=== PATIENT | female | born 1975 | race Caucasian/White ===

== ENCOUNTER 2016-05-04 14:34 | Emergency (ER) | payer BC, MEDICAID ==
[~2016-05-04] VITALS: Wt 68.4 kg
[~2016-05-04 14:34] MED LIST: ASA PO; AZIT250T94 PO; CHOL10009 PO; D-ME473S18 PO; DOCU-144 PO; FAMO-18 PO; FERR-55 PO; GABA300C16 PO; INSULIN GLARGINE; INSULIN LISPRO; LAS20 PO; LORA10CA PO; LOSA25TA5 PO; OMEP20CA16 PO; POTA20TA15 PO; PRAV80TA27 PO; PROM6.25 PO; RANI150T9 PO
[2016-05-04] MEDS ORDERED: NAPR-260 PO (15:21)
[2016-05-04] MEDS ORDERED: DICL100G37 TOP (15:22)
--- NOTE | 2016-05-04 17:00 | ERD ---
ER Documentation Chief Complaint Date/Time DATE: 05/04/16 TIME: 16:57 Chief Complaint NUMBNESS ON RIGHT ARM, ONSET 1 MONTH, NO WEAKNESS HPI Patient is a 40-year-old female who presents to the ED with 1.5 months of bilateral knee pain, wrist pain, finger joint pain that radiates up to her bilateral shoulders. She states that she has had this bone and joint pain for about a month and a half. Denies chest pain, shortness of breath or difficulty breathing. Denies numbness or tingling. Denies headache or dizziness. Denies abdominal pain, nausea, vomiting or diarrhea. She states that she has been using an [id number] cream for her symptoms. She has not gone to her primary care regarding this issue. She denies any past medical history. ROS All systems reviewed and are negative except as per history of present illness. Medications Home Meds Active Scripts Diclofenac Sodium* (Voltaren* Gel) 1% -100 Gm Gel, 2 GM TOP QID, #1 TUB Prov:RAMESH VILLEGAS PA-C 05/04/16 Naproxen* (Naprosyn*) 500 Mg Tablet, 500 MG PO BID Y for PAIN AND/OR INFLAMMATION, #30 TAB Prov:RAMESH VILLEGAS PA-C 05/04/16 Dextromethorphan Hb-Promethazine Hcl (Promethazine DM Syrup) 473 Ml Syrup, 10 ML PO Q6H Y for COUGH, #4 OZ Prov:GRACIE FINLEY 01/11/16 Azithromycin* (Zithromax*) 250 Mg Tablet, 250 MG PO .LUCIEN DIRECTED, #6 TAB TAKE 500 MG (2 TABS) THE FIRST DAY THEN 250 MG (1 TAB) DAYS 2-5 Prov:GRACIE FINLEY 01/11/16 Loratadine* (Claritin*) 10 Mg Capsule, 10 MG PO DAILY, #30 CAP Prov:AMAN MATTHEWS PA-C 10/14/15 Ranitidine Hcl* (Zantac*) 150 Mg Tablet, 150 MG PO DAILY Y for EPIGASTRIC PAIN, #30 TAB Prov:AMAN MATTHEWS PA-C 10/14/15 Promethazine w/Codeine* (Phenergan w/Codeine* Syrup) 5 Ml Syrup, 5 ML PO Q4H Y for COUGH, #4 OZ Prov:STANTON GALAN DO 01/14/15 Omeprazole* (Omeprazole*) 20 Mg Capsule.dr, 20 MG PO DAILY for 7 Days, CAP Prov:LORI MCNAMARA NP 09/07/14 Famotidine* (Pepcid*) 20 Mg Tablet, 20 MG PO BID for 4 Days, TAB Prov:LORI MCNAMARA IRON LAUNDER OPERATOR 09/07/14 Reported Medications [Lantus,Humalog Insulin] No Conflict Check 07/22/12 Cholecalciferol (Vitamin D3) 1,000 Unit Capsule, 1000 UNIT PO DAILY 07/22/12 Gabapentin* (Gabapentin*) 300 Mg Capsule, 300 MG PO TID 07/22/12 Ferrous Sulfate* (Ferrous Sulfate*) 325 Mg Tablet, 325 MG PO TID 07/22/12 Docusate Sodium* (Colace*) 100 Mg Capsule, 100 MG PO DAILY 07/22/12 Losartan Potassium* (Losartan Potassium*) 25 Mg Tablet, 25 MG PO DAILY 07/22/12 Pravastatin Sodium* (Pravastatin Sodium*) 80 Mg Tablet, 80 MG PO DAILY 07/22/12 Furosemide (Lasix) 20 Mg Tab, 20 MG PO DAILY 07/22/12 Potassium Chloride* (K-Dur*) 20 Meq Tab.prt.sr, 20 MEQ PO DAILY 07/22/12 [Asa] No Conflict Check, 81 MG PO DAILY 07/22/12 [None] No Conflict Check 07/22/12 [None] No Conflict Check 04/01/11 Allergies Allergies: Coded Allergies: No Known Allergy (Unverified , 01/11/16) PMhx/Soc Medical and Surgical Hx: pt denies Medical Hx, pt denies Surgical Hx History of Surgery: No Anesthesia Reaction: No Hx Neurological Disorder: No Hx Respiratory Disorders: No Hx Cardiac Disorders: No Hx Psychiatric Problems: No Hx Miscellaneous Medical Probl: No Hx Alcohol Use: No Hx Substance Use: No Hx Tobacco Use: No Smoking Status: Never smoker FmHx Family History: No coronary disease, No diabetes, No other Physical Exam Vitals Vital Signs Date Time Temp Pulse Resp B/P Pulse Ox O2 Delivery O2 Flow Rate FiO2 05/04/16 14:37 98.7 77 18 152/99 100 Physical Exam GENERAL: Well-developed, well-nourished female. Appears in no acute distress. HEAD: Normocephalic, atraumatic. EYES: Pupils are equally reactive bilaterally. EOMs grossly intact. No conjunctival erythema. ENT: Moist mucous membranes. No uvula deviation. No kissing tonsils. No exudates. NECK: Supple. No lymphadenopathy or thyromegaly. No meningismus. negative kernig. negative brudinski. LUNG: Clear to auscultation bilaterally. No rhonchi, wheezing, rales or coarse breath sounds. HEART: Regular rate and rhythm. No murmurs, rubs or gallops. Extremities: Equal pulses bilaterally. No peripheral clubbing, cyanosis or edema. No unilateral leg swelling.tenderness to her shoulder, elbow, wrist, fingers and knee joints. tenderness to all her finger joints. no echhymosis, swelling or induration. no warmth or erythema. radius ulnar and median nerve intact. no weakness. NEUROLOGIC: Alert and oriented. Moving all four extremities. 5/5 strength in all extremities. Normal speech. Steady gait. Cranial nerves II through XII intact SKIN: Normal color. Warm and dry. No rashes or lesions. Capillary refill < 2 seconds Procedures/MDM ER COURSE: I kept the patient and/or family informed of laboratory and diagnostic imaging results throughout the emergency room course. MEDICAL DECISION MAKING: This is a 40 year old female who presents with bilateral leg pain, knee pain and bilateral shoulder and arm pain. Vital signs were reviewed. Patient is afebrile. Patient is not hypoxic. Patient is not toxic or ill-appearing. Patient likely has arthritis versus fibromyalgia. I do not think any x-rays are warranted at this time as this is a chronic issue and I have low suspicion for dislocation fraction. Low suspicion for intracranial hemorrhage, meningitis , intracranial mass, concussion, temporal arteritis, stroke, elevated intracranial pressure, seizure. Low suspicion for dislocation, fracture, septic joint, compartment syndrome, osteomyelitis, cellulitis, avascular necrosis, neurological injury, vascular injury, tendon laceration. DISCHARGE: At this time, patient is stable for discharge and outpatient management with no new complaints during the ER course. Patient was sent home with Naprosyn and Voltaren gel. Advised patient to follow-up with her primary care and list of primary care is in the area were given to patient. Patient will be discharged home with instructions to recheck for new or worsening symptoms such as fever, nausea, weakness, LOC and to follow up with primary care in the next 1-2 days. Patient was advised to return to the ER for any new or worsening symptoms. Plan was discussed and patient and/or family understands and agrees. Home instructions were given. Departure Diagnosis: Primary Impression: Joint pain Joint pain location: unspecified Qualified Code: M25.50 - Arthralgia, unspecified joint Condition: Stable Patient Instructions: Pain Management Referrals: [facility] YOU HAVE RECEIVED A MEDICAL SCREENING EXAM AND THE RESULTS INDICATE THAT YOU DO NOT HAVE A CONDITION THAT REQUIRES URGENT TREATMENT IN THE EMERGENCY DEPARTMENT. FURTHER EVALUATION AND TREATMENT OF YOUR CONDITION CAN WAIT UNTIL YOU ARE SEEN IN YOUR DOCTORS OFFICE WITHIN THE NEXT 1-2 DAYS. IT IS YOUR RESPONSIBILITY TO MAKE AN APPOINTMENT FOR FOLOW-UP CARE. IF YOU HAVE A PRIMARY DOCTOR --you should call your primary doctor and schedule an appointment IF YOU DO NOT HAVE A PRIMARY DOCTOR YOU CAN CALL OUR PHYSICIAN REFERRAL HOTLINE AT IF YOU CAN NOT AFFORD TO SEE A PHYSICIAN YOU CAN CHOSE FROM THE FOLLOWING [facility] [address] [facility] [address] [facility] [address] [facility] [address] [facility] [address] [facility]. [facility]. [address] Additional Instructions: Llame al doctor MAANA y jaylen mana JUDY PARA DENTRO DE 1-2 LIN.Dgale a la secretaria que nosotros le instruimos hacer esta judy.Avise o llame si caicedo condicin se empeora antes de la judy. Regresa aqui si peor o no mejor. RAMESH VILLEGAS PA-C May 04, 2016 17:00
== END 2016-05-04 17:07 | disposition home or self-care (01) ==
LOC: FTE 14:34
DX: M25.561 Pain in right knee (principal); M25.562 Pain in left knee; M25.531 Pain in right wrist; M25.532 Pain in left wrist; M79.645 Pain in left finger(s); M79.644 Pain in right finger(s); Z79.82 Long term (current) use of aspirin; Z79.4 Long term (current) use of insulin
CPT/HCPCS: 99283

== ENCOUNTER 2016-06-18 18:27 | Emergency (ER) | payer MEDICAID ==
[~2016-06-18] VITALS: Ht 157.5 cm; Wt 68.5 kg
[~2016-06-18 18:27] MED LIST changes: +DICL100G37 TOP; +NAPR-260 PO
[2016-06-18 18:49] VITALS: Ht 157.5 cm; Wt 68.5 kg
[2016-06-18] MEDS ORDERED: FIORICET PO ×2 (19:04→19:05)
[2016-06-18] MEDS ORDERED: FLUT9.9S NASAL (19:04)
[2016-06-18] MEDS ORDERED: CETI10CA PO (19:04)
--- NOTE | 2016-06-18 19:17 | ERD ---
ER Documentation Chief Complaint Date/Time DATE: 06/18/16 TIME: 19:13 Chief Complaint Headache and nasal congestion (itchy nose) HPI 40-year-old female presents here in emergency department for complaints of itchiness in the nose headache for 2 weeks. Patient is complaining of runny congestion with clear nasal discharge. Patient is also complaining of itching in the nose. Patient does not have any fever or chills. Patient denies any foreign discharge from thepatient's complaining of headache, throbbing pain, 4/ 10 scale, and is better or worse with anything. ROS All systems reviewed and are negative except as per history of present illness. Medications Home Meds Active Scripts Acetamin/Butalbital/Caffeine* (Fioricet*) [id number] Tab, 1 TAB PO Q6H Y for SEVERE PAIN LEVEL 7-10, #30 TAB Prov:TOD ROWAN NP 06/18/16 Cetirizine Hcl* (Zyrtec*) 10 Mg Capsule, 10 MG PO DAILY, #30 TAB.CHEW Prov:TOD ROWAN NP 06/18/16 Fluticasone Propionate (Flonase Allergy Relief) 9.9 Ml Ceiba.susp, 1 SPRAY NASAL BID, #1 BOTTLE TO EACH NOSTRIL Prov:TOD ROWAN NP 06/18/16 Diclofenac Sodium* (Voltaren* Gel) 1% -100 Gm Gel, 2 GM TOP QID, #1 TUB Prov:RAMESH VILLEGAS PA-C 05/04/16 Naproxen* (Naprosyn*) 500 Mg Tablet, 500 MG PO BID Y for PAIN AND/OR INFLAMMATION, #30 TAB Prov:RAMESH VILLEGAS PA-C 05/04/16 Dextromethorphan Hb-Promethazine Hcl (Promethazine DM Syrup) 473 Ml Syrup, 10 ML PO Q6H Y for COUGH, #4 OZ Prov:GRACIE FINLEY 01/11/16 Azithromycin* (Zithromax*) 250 Mg Tablet, 250 MG PO .ZPACK DIRECTED, #6 TAB TAKE 500 MG (2 TABS) THE FIRST DAY THEN 250 MG (1 TAB) DAYS 2-5 Prov:GRACIE FINLEY 01/11/16 Loratadine* (Claritin*) 10 Mg Capsule, 10 MG PO DAILY, #30 CAP Prov:AMAN MATTHEWS PA-C 10/14/15 Ranitidine Hcl* (Zantac*) 150 Mg Tablet, 150 MG PO DAILY Y for EPIGASTRIC PAIN, #30 TAB Prov:AMAN MATTHEWS PA-C 10/14/15 Promethazine w/Codeine* (Phenergan w/Codeine* Syrup) 5 Ml Syrup, 5 ML PO Q4H Y for COUGH, #4 OZ Prov:STANTON GALAN DO 01/14/15 Omeprazole* (Omeprazole*) 20 Mg Capsule.dr, 20 MG PO DAILY for 7 Days, CAP Prov:LORI MCNAMARA NP 09/07/14 Famotidine* (Pepcid*) 20 Mg Tablet, 20 MG PO BID for 4 Days, TAB Prov:LORI MCNAMARA MECHANICAL DESIGN ENGINEER FACILITIES 09/07/14 Reported Medications [Lantus,Humalog Insulin] No Conflict Check 07/22/12 Cholecalciferol (Vitamin D3) 1,000 Unit Capsule, 1000 UNIT PO DAILY 07/22/12 Gabapentin* (Gabapentin*) 300 Mg Capsule, 300 MG PO TID 07/22/12 Ferrous Sulfate* (Ferrous Sulfate*) 325 Mg Tablet, 325 MG PO TID 07/22/12 Docusate Sodium* (Colace*) 100 Mg Capsule, 100 MG PO DAILY 07/22/12 Losartan Potassium* (Losartan Potassium*) 25 Mg Tablet, 25 MG PO DAILY 07/22/12 Pravastatin Sodium* (Pravastatin Sodium*) 80 Mg Tablet, 80 MG PO DAILY 07/22/12 Furosemide (Lasix) 20 Mg Tab, 20 MG PO DAILY 07/22/12 Potassium Chloride* (K-Dur*) 20 Meq Tab.prt.sr, 20 MEQ PO DAILY 07/22/12 [Asa] No Conflict Check, 81 MG PO DAILY 07/22/12 [None] No Conflict Check 07/22/12 [None] No Conflict Check 04/01/11 Allergies Allergies: Coded Allergies: No Known Allergy (Unverified , 01/11/16) PMhx/Soc Medical and Surgical Hx: pt denies Medical Hx, pt denies Surgical Hx History of Surgery: No Anesthesia Reaction: No Hx Neurological Disorder: No Hx Respiratory Disorders: No Hx Cardiac Disorders: No Hx Psychiatric Problems: No Hx Miscellaneous Medical Probl: No Hx Alcohol Use: No Hx Substance Use: No Hx Tobacco Use: No FmHx Family History: No coronary disease, No diabetes, No other Physical Exam Vitals Vital Signs Date Time Temp Pulse Resp B/P Pulse Ox O2 Delivery O2 Flow Rate FiO2 06/18/16 18:49 98.7 74 20 118/79 99 Physical Exam GENERAL: The patient is well developed and appropriate for usual state of health, in no apparent distress. HEENT: Atraumatic. Ears: Normal tympanic membrane, no erythema or bulging. No ear canal swelling. No ear discharge. Nose: Pale boggy nares with clear nasal discharge. Throat: oropharynx erythematous with postnasal drip. No tonsillar swelling or tonsillar exudates. No lymphadenopathy. CHEST: Clear to auscultation bilaterally. There are no rales, wheezes or rhonchi. HEART: Regular rate and rhythm. No murmurs, clicks, rubs or gallops. No S3 or S4. ABDOMEN: Soft, nontender and nondistended. Good bowel sounds. No rebound or guarding. No gross peritonitis. No gross organomegaly or masses. No Madrigal sign or McBurney point tenderness. BACK: No midline or flank tenderness. EXTREMITIES: Equal pulses bilaterally. There is no peripheral clubbing, cyanosis or edema. No focal swelling or erythema. Full range of motion. Grossly neurovascularly intact. NEURO: Alert and oriented. Cranial nerves 2-12 intact. Motor strength in all 4 extremities with 5/5 strength. Sensation grossly intact. Normal speech and gait. SKIN: There is no apparent rash or petechia. The skin is warm and dry. HEMATOLOGIC AND LYMPHATIC: There is no evidence of excessive bruising or lymphedema. No gross cervical, axillary, or inguinal lymphadenopathy. Procedures/MDM Medical decision making: Patient symptoms most likely this consistent with allergic rhinitis.Low suspicion for acute bacterial rhinosinusitis. No symptoms of sepsis at this time. Patient appears well and is hemodynamically stable. No symptoms of neurologic emergencies at this time. Patient's neurologic exam is normal. Radiology exams are not indicated at this time. Patient was given for Zyrtec Flonase Fioricet, is advised to follow with primary doctor in 2 days for reevaluation of symptoms. Patient is advised to return to emergency department for any worsening symptoms. Departure Diagnosis: Primary Impression: Allergic rhinitis Allergic rhinitis trigger: unspecified Allergic rhinitis seasonality: unspecified seasonality Qualified Code: J30.9 - Allergic rhinitis, unspecified allergic rhinitis trigger, unspecified rhinitis seasonality Additional Impression: Headache Headache type: unspecified Headache chronicity pattern: acute headache Intractability: not intractable Qualified Code: R51 - Acute nonintractable headache, unspecified headache type Condition: Stable Patient Instructions: Self-Care for Headaches, Allergic Rhinitis TOD ROWAN NP Jun 18, 2016 19:17
== END 2016-06-18 19:17 | disposition home or self-care (01) ==
LOC: E/R 18:27
DX: J30.9 Allergic rhinitis, unspecified (principal); Z79.82 Long term (current) use of aspirin; Z79.4 Long term (current) use of insulin
CPT/HCPCS: 99283

== ENCOUNTER 2017-02-25 15:03 | Emergency (ER) | payer MEDICAID ==
[~2017-02-25] VITALS: Ht 154.9 cm; Wt 59.0 kg
[~2017-02-25 15:03] MED LIST changes: +CETI10CA PO; -FAMO-18 PO; +FAMO-96 PO; +FIORICET PO; +FLUT9.9S NASAL
[2017-02-25 15:05] VITALS: Ht 154.9 cm; Wt 59.0 kg
--- NOTE | 2017-02-25 16:19 | ERD ---
ER Documentation Chief Complaint Chief Complaint flu like symptoms, body aches. after a flu shot HPI This is a 41-year-old female who presents emergency department today complaining of cough for the past month. States that she had the flu shot 4 weeks ago and since that time she has had a cough.. States that she has a lot of phlegm. States she has some upper back pain from coughing. She has taken Jamilah-Ethan. Denies any fevers or chills ROS All systems reviewed and are negative except as per history of present illness. Medications Home Meds Active Scripts Azithromycin* (Zithromax*) 250 Mg Tablet, 250 MG PO .ZPACK DIRECTED, #6 TAB TAKE 500 MG (2 TABS) THE FIRST DAY THEN 250 MG (1 TAB) DAYS 2-5 Prov:JESUS CASTRO PA-C 02/25/17 Naproxen* (Naprosyn*) 500 Mg Tablet, 500 MG PO BID Y for PAIN AND/OR INFLAMMATION, #30 TAB Prov:JESUS CASTRO PA-C 02/25/17 Fluticasone Propionate (Flonase Allergy Relief) 9.9 Ml Benicia.susp, 2 SPRAY NASAL DAILY, #1 BOTTLE TO EACH NOSTRIL Prov:JESUS CASTRO PA-C 02/25/17 Cetirizine Hcl* (Zyrtec*) 10 Mg Capsule, 10 MG PO DAILY, #14 TAB.CHEW Prov:JESUS CASTRO PA-C 02/25/17 Guaifenesin-Dextromethorphan* (Robitussin* DM) 100MG/10MG/5ML Syrup, 10 ML PO Q6H Y for COUGH for 5 Days, ML Prov:JESUS CASTRO PA-C 02/25/17 Acetamin/Butalbital/Caffeine* (Fioricet*) [id number] Tab, 1 TAB PO Q6H Y for SEVERE PAIN LEVEL 7-10, #30 TAB Prov:TOD ROWAN NP 06/18/16 Cetirizine Hcl* (Zyrtec*) 10 Mg Capsule, 10 MG PO DAILY, #30 TAB.CHEW Prov:TOD ROWAN NP 4/5/17 Fluticasone Propionate (Flonase Allergy Relief) 9.9 Ml Benicia.susp, 1 SPRAY NASAL BID, #1 BOTTLE TO EACH NOSTRIL Prov:TOD ROWAN NP 06/18/16 Diclofenac Sodium* (Voltaren* Gel) 1% -100 Gm Gel, 2 GM TOP QID, #1 TUB Prov:RAMESH VILLEGAS PA-C 05/04/16 Naproxen* (Naprosyn*) 500 Mg Tablet, 500 MG PO BID Y for PAIN AND/OR INFLAMMATION, #30 TAB Prov:RAMESH VILLEGAS PA-C 05/04/16 Dextromethorphan Hb-Promethazine Hcl (Promethazine DM Syrup) 473 Ml Syrup, 10 ML PO Q6H Y for COUGH, #4 OZ Prov:GRACIE FINLEY 01/11/16 Azithromycin* (Zithromax*) 250 Mg Tablet, 250 MG PO .AmolPACK DIRECTED, #6 TAB TAKE 500 MG (2 TABS) THE FIRST DAY THEN 250 MG (1 TAB) DAYS 2-5 Prov:GRACIE FINLEY 01/11/16 Loratadine* (Claritin*) 10 Mg Capsule, 10 MG PO DAILY, #30 CAP Prov:AMAN MATTHEWS PA-C 10/14/15 Ranitidine Hcl* (Zantac*) 150 Mg Tablet, 150 MG PO DAILY Y for EPIGASTRIC PAIN, #30 TAB Prov:AMAN MATTHEWS PA-C 10/14/15 Promethazine w/Codeine* (Phenergan w/Codeine* Syrup) 5 Ml Syrup, 5 ML PO Q4H Y for COUGH, #4 OZ Prov:STANTON GALAN DO 01/14/15 Omeprazole* (Omeprazole*) 20 Mg Capsule.dr, 20 MG PO DAILY for 7 Days, CAP Prov:LORI MCNAMARA NP 09/07/14 Famotidine* (Pepcid*) 20 Mg Tablet, 20 MG PO BID for 4 Days, TAB Prov:LORI MCNAMARA NP 09/07/14 Reported Medications [Lantus,Humalog Insulin] No Conflict Check 07/22/12 Cholecalciferol (Vitamin D3) 1,000 Unit Capsule, 1000 UNIT PO DAILY 07/22/12 Gabapentin* (Gabapentin*) 300 Mg Capsule, 300 MG PO TID 07/22/12 Ferrous Sulfate* (Ferrous Sulfate*) 325 Mg Tablet, 325 MG PO TID 07/22/12 Docusate Sodium* (Colace*) 100 Mg Capsule, 100 MG PO DAILY 07/22/12 Losartan Potassium* (Losartan Potassium*) 25 Mg Tablet, 25 MG PO DAILY 07/22/12 Pravastatin Sodium* (Pravastatin Sodium*) 80 Mg Tablet, 80 MG PO DAILY 07/22/12 Furosemide (Lasix) 20 Mg Tab, 20 MG PO DAILY 07/22/12 Potassium Chloride* (K-Dur*) 20 Meq Tab.prt.sr, 20 MEQ PO DAILY 07/22/12 [Asa] No Conflict Check, 81 MG PO DAILY 07/22/12 [None] No Conflict Check 07/22/12 [None] No Conflict Check 04/01/11 Allergies Allergies: Coded Allergies: No Known Allergy (Unverified , 02/25/17) PMhx/Soc History of Surgery: No Anesthesia Reaction: No Hx Neurological Disorder: No Hx Respiratory Disorders: No Hx Cardiac Disorders: No Hx Psychiatric Problems: No Hx Miscellaneous Medical Probl: No Hx Alcohol Use: No Hx Substance Use: No Hx Tobacco Use: No Physical Exam Vitals Vital Signs Date Time Temp Pulse Resp B/P Pulse Ox O2 Delivery O2 Flow Rate FiO2 02/25/17 15:05 98.1 79 18 132/79 99 Physical Exam Const: NAD Head: Atraumatic Eyes: Normal Conjunctiva ENT: Normal External Ears, Nose and Mouth. Throat erythema no exudate no vesicles Neck: Full range of motion..~ No meningismus. Resp: Clear to auscultation bilaterally. Throat no absent breath sounds. No wheezing. Mild tenderness palpation chest wall. Cardio: Regular rate and rhythm, no murmurs Abd: Soft, non tender, non distended. Normal bowel sounds Skin: No petechiae or rashes Back: No midline or flank tenderness. Tenderness to palpation lower trapezius muscle Ext: No cyanosis, or edema Neur: Awake and alert Psych: Normal Mood and Affect Results 24 hrs DIAGNOSTIC IMAGING REPORT Patient: JAI VICKERS : 1975 Age: 41 Sex: F MR #: [id number] DOS: 02/25/17 0000 Ordering MD: JESUS CASTRO PA-C Location: [facility] Room/Bed: PROCEDURE: Chest x-ray CLINICAL INDICATION: Cough TECHNIQUE: Chest single view COMPARISON: 10/14/2015 FINDINGS: The heart is normal in size. The pulmonary vessels are normal in caliber. The lungs are clear. The costophrenic angles are sharp. The visualized bony thorax is unremarkable. IMPRESSION: No acute cardiopulmonary disease. RPTAT: HH .Constantin Gomez MD, Date Time Electronically viewed and signed by .Constantin Goemz MD, on 02/25/2017 16:59 .W/ CC: JESUS CASTRO PA-C Procedures/MDM This is a 41-year-old female who presents to the emergency department today complaining of a cough for the past month. Patient states that she started with a cough right after she got the flu shot. States that she has some upper back pain from coughing. States that she has a lot of phlegm. Patient complains of cough for the past month I did obtain a chest x-ray.Patient is afebrile and otherwise well-appearing. Her oxygen saturation is 99%. She is not tachycardic. I have low suspicion for pneumonia, PE, abscess, pleural effusion, pneumothorax however given patient's duration of cough I did obtain a chest x-ray Chest x ray shows no acute cardiopulmonary disease. Symptoms at this time most consistent with cough. Patient symptoms at this time most likely viral however given patient's duration of symptoms I will give her a prescription for azithromycin, Robitussin, Zyrtec, Flonase and naprosyn for her chest wall pain. At this time the patient is stable for discharge and outpatient management. Patient should follow up with their PCP in the next 1-2 days. They may return to the emergency department sooner for any persistent or worsening of symptoms. Patient understood and agreed with the plan. Departure Diagnosis: Primary Impression: Cough Condition: Fair JESUS CASTRO PA-C Feb 25, 2017 16:19
--- NOTE | 2017-02-25 16:59 | RADRPT ---
PROCEDURE: Chest x-ray CLINICAL INDICATION: Cough TECHNIQUE: Chest single view COMPARISON: 10/14/2015 FINDINGS: The heart is normal in size. The pulmonary vessels are normal in caliber. The lungs are clear. Th e costophrenic angles are sharp. The visualized bony thorax is unremarkable. IMPRESSION: No acute cardiopulmonary disease. RPTAT: HH .Constantin Gomez MD, Date Time Electronically viewed and signed by .Constantin Gomez MD, on 02/25/2017 16:59 .W/
[2017-02-25] MEDS ORDERED: UDROBDM PO (17:11)
[2017-02-25] MEDS ORDERED: CETI10CA PO (17:11)
[2017-02-25] MEDS ORDERED: NAPR-260 PO (17:12)
[2017-02-25] MEDS ORDERED: FLUT9.9S NASAL (17:12)
[2017-02-25] MEDS ORDERED: AZIT250T94 PO (17:13)
== END 2017-02-25 17:43 | disposition home or self-care (01) ==
LOC: FTE 15:03
DX: R05 Cough (principal)
CPT/HCPCS: 71010; Z7502

== ENCOUNTER 2017-05-29 18:15 | Emergency (ER) | END 2017-05-29 18:30 | disposition home or self-care (01) ==

== ENCOUNTER 2018-04-03 14:29 | Emergency (ER) | payer BC, MEDICAID ==
[~2018-04-03] VITALS: Ht 157.5 cm; Wt 68.0 kg
[~2018-04-03 14:29] MED LIST changes: +ACET500C5 PO; +ALBU8.5H8 INH; +AZIT250T PO; -AZIT250T94 PO; +GUAI120S26 PO; +GUAI5SYR2 PO; +IBUP-1542 PO; +LOSA25TA12 PO; -LOSA25TA5 PO; -NAPR-260 PO; +NAPR-985 PO; +RANI150T35 PO; -RANI150T9 PO
[2018-04-03 14:33] VITALS: BP 137/87; PULSE 84; RESP 18; Ht 157.5 cm; Wt 68.0 kg
[2018-04-03] MEDS ORDERED: PROM6.2515 PO (15:31)
[2018-04-03] MEDS ORDERED: NAPR-985 PO (15:31)
[2018-04-03] MEDS ORDERED: PSEU-79 PO (15:31)
--- NOTE | 2018-04-03 15:42 | ERD ---
ER Documentation Chief Complaint Chief Complaint pt is bib self with c/o cold, runny nose, sore throat, aches and pains HPI 42-year-old female presenting with congestion. Patient has a cough and runny nose. Sore throat. No fevers. Last took [place]. Has not taken medications. No fevers. No other medical problems. No sick contacts. NKDA. Surgical history . Social history denies ROS All systems reviewed and are negative except as per history of present illness. Medications Home Meds Active Scripts Promethazine Hcl* (Promethazine Hcl* Syrup) 6.25 Mg/5 Ml Syrup, 6.25 MG PO Q6H PRN for COUGH, #100 ML Prov:OLIVIA ONEILL PA-C 04/03/18 Naproxen* (Naprosyn*) 500 Mg Tablet, 500 MG PO BID PRN for PAIN AND/OR INFLAMMATION, #30 TAB Prov:OLIVIA ONEILL PA-C 04/03/18 Pseudoephedrine Hcl* (Suphedrin*) 30 Mg Tablet, 30 MG PO Q6 PRN for CONGESTION, #30 TAB Prov:OLIVIA ONEILL PA-C 04/03/18 Acetaminophen* (Tylophen*) 500 Mg Capsule, 1 CAP PO Q6H PRN for PAIN AND OR ELEVATED TEMP, #20 CAP Prov:JOANNA YOUSSEF PA-C 07/19/17 Albuterol Sulfate* (Proair HFA*) 8.5 Gm Hfa.aer.ad, 2 PUFF INH Q4H PRN for WHEEZING AND SOB, #1 INHALER Prov:TOD ROWAN NP 05/29/17 Acetaminophen* (Tylophen*) 500 Mg Capsule, 1 CAP PO Q6H PRN for PAIN AND OR ELEVATED TEMP, #20 CAP Prov:TOD ROWAN NP 05/29/17 Ibuprofen* (Motrin*) 600 Mg Tab, 600 MG PO Q6H PRN for PAIN AND OR ELEVATED TEMP, #30 TAB Prov:TOD ROWAN NP 05/29/17 Cetirizine Hcl* (Zyrtec*) 10 Mg Capsule, 10 MG PO DAILY, #30 TAB.CHEW Prov:TOD ROWAN INSTRUMENT ADJUSTER 05/29/17 Odmfrzzqtfs-Y-Xngrsoytky Hb* (Guaifenesin* DM Syrup) 120 Ml Syrup, 10 ML PO Q4H PRN for COUGH, #120 ML Prov:TOD ROWAN INSTRUMENT ADJUSTER 05/29/17 Azithromycin* (Zithromax*) 250 Mg Tablet, 250 MG PO .ZPACK DIRECTED, #6 TAB TAKE 500 MG (2 TABS) THE FIRST DAY THEN 250 MG (1 TAB) DAYS 2-5 Prov:TOD ROWAN INSTRUMENT ADJUSTER 05/29/17 Azithromycin* (Zithromax*) 250 Mg Tablet, 250 MG PO .ZPACK DIRECTED, #6 TAB TAKE 500 MG (2 TABS) THE FIRST DAY THEN 250 MG (1 TAB) DAYS 2-5 Prov:JESUS CASTROC 02/25/17 Naproxen* (Naprosyn*) 500 Mg Tablet, 500 MG PO BID PRN for PAIN AND/OR INFLAMMATION, #30 TAB Prov:JESUS CASTROC 02/25/17 Fluticasone Propionate (Flonase Allergy Relief) 9.9 Ml [place].susp, 2 SPRAY NASAL DAILY, #1 BOTTLE TO EACH NOSTRIL Prov:JESUS CASTROC 02/25/17 Cetirizine Hcl* (Zyrtec*) 10 Mg Capsule, 10 MG PO DAILY, #14 TAB.CHEW Prov:JESUS CASTRO PA-C 02/25/17 Guaifenesin-Dextromethorphan* (Robitussin* DM) 100MG/10MG/5ML Syrup, 10 ML PO Q6H PRN for COUGH for 5 Days, ML Prov:JESUS CASTROC 02/25/17 Acetamin/Butalbital/Caffeine* (Fioricet*) [id number] Tab, 1 TAB PO Q6H PRN for SEVERE PAIN LEVEL 7-10, #30 TAB Prov:TOD ROWAN NP 06/18/16 Cetirizine Hcl* (Zyrtec*) 10 Mg Capsule, 10 MG PO DAILY, #30 TAB.CHEW Prov:TOD ROWAN NP 06/18/16 Fluticasone Propionate (Flonase Allergy Relief) 9.9 Ml [place].susp, 1 SPRAY NASAL BID, #1 BOTTLE TO EACH NOSTRIL Prov:TOD ROWAN NP 06/18/16 Diclofenac Sodium* (Voltaren* Gel) 1% -100 Gm Gel, 2 GM TOP QID, #1 TUB Prov:RAMESH VILLEGAS PA-C 05/04/16 Naproxen* (Naprosyn*) 500 Mg Tablet, 500 MG PO BID PRN for PAIN AND/OR INFLAMMATION, #30 TAB Prov:RAMESH VILLEGAS PA-C 05/04/16 Dextromethorphan Hb-Promethazine Hcl (Promethazine DM Syrup) 473 Ml Syrup, 10 ML PO Q6H PRN for COUGH, #4 OZ Prov:GRACIE FINLEY 01/11/16 Azithromycin* (Zithromax*) 250 Mg Tablet, 250 MG PO .LUCIEN DIRECTED, #6 TAB TAKE 500 MG (2 TABS) THE FIRST DAY THEN 250 MG (1 TAB) DAYS 2-5 Prov:GRACIE FINLEY 01/11/16 Loratadine* (Claritin*) 10 Mg Capsule, 10 MG PO DAILY, #30 CAP Prov:AMAN MATTHEWS PA-C 10/14/15 Ranitidine Hcl* (Zantac*) 150 Mg Tablet, 150 MG PO DAILY PRN for EPIGASTRIC PAIN, #30 TAB Prov:AMAN MATTHEWS PA-C 10/14/15 Promethazine w/Codeine* (Phenergan w/Codeine* Syrup) 5 Ml Syrup, 5 ML PO Q4H PRN for COUGH, #4 OZ Prov:STANTON GALAN DO 01/14/15 Omeprazole* (Omeprazole*) 20 Mg Capsule.dr, 20 MG PO DAILY for 7 Days, CAP Prov:LORI MCNAMARA NP 09/07/14 Famotidine* (Pepcid*) 20 Mg Tablet, 20 MG PO BID for 4 Days, TAB Prov:LORI MCNAMARA NP 09/07/14 Reported Medications [Lantus,Humalog Insulin] No Conflict Check 07/22/12 Cholecalciferol (Vitamin D3) 1,000 Unit Capsule, 1000 UNIT PO DAILY 07/22/12 Gabapentin* (Gabapentin*) 300 Mg Capsule, 300 MG PO TID 07/22/12 Ferrous Sulfate* (Ferrous Sulfate*) 325 Mg Tablet, 325 MG PO TID 07/22/12 Docusate Sodium* (Colace*) 100 Mg Capsule, 100 MG PO DAILY 07/22/12 Losartan Potassium* (Losartan Potassium*) 25 Mg Tablet, 25 MG PO DAILY 07/22/12 Pravastatin Sodium* (Pravastatin Sodium*) 80 Mg Tablet, 80 MG PO DAILY 07/22/12 Furosemide (Lasix) 20 Mg Tab, 20 MG PO DAILY 07/22/12 Potassium Chloride* (K-Dur*) 20 Meq Tab.prt.sr, 20 MEQ PO DAILY 07/22/12 [Asa] No Conflict Check, 81 MG PO DAILY 07/22/12 [None] No Conflict Check 07/22/12 [None] No Conflict Check 04/01/11 Allergies Allergies: Coded Allergies: No Known Allergy (Unverified , 07/19/17) PMhx/Soc Medical and Surgical Hx: pt denies Medical Hx History of Surgery: Yes (caesarian section) Anesthesia Reaction: No Hx Neurological Disorder: No Hx Respiratory Disorders: No Hx Cardiac Disorders: No Hx Psychiatric Problems: No Hx Miscellaneous Medical Probl: No Hx Alcohol Use: No Hx Substance Use: No Hx Tobacco Use: No Smoking Status: Never smoker FmHx Family History: No diabetes, No coronary disease, No other Physical Exam Vitals Vital Signs Date Temp Pulse Resp B/P (MAP) Pulse Ox O2 O2 Flow FiO2 Time Delivery Rate 04/03/18 97.8 84 18 137/87 99 14:33 (104) Physical Exam GENERAL: The patient is well-appearing, well-nourished, in no acute distress HEENT: Atraumatic. Conjunctivae are pink. Pupils equal, round, and reactive to light. There is no scleral icterus. Tympanic membranes clear bilaterally. Oropharynx clear. NECK: C-spine is soft and supple. There is no meningismus. There is no cervical lymphadenopathy CHEST: Clear to auscultation bilaterally. There are no rales, wheezes or rhonchi. HEART: Regular rate and rhythm. No murmurs, clicks, rubs or gallops. Procedures/MDM MDM: 42-year-old female presenting with URI symptoms. I have low suspicion for pneumonia. I have low suspicion for bacterial HEENT infection. I do not feel antibiotics are indicated. Patient likely has viral URI. Patient is discharged stricter precautions and told to follow-up with primary care within 1-2 days for close evaluation. All questions answered at discharge Departure Diagnosis: Primary Impression: Upper respiratory infection Condition: Stable Patient Instructions: Uri, Viral, No Abx (Adult) Referrals: [facility] YOU HAVE RECEIVED A MEDICAL SCREENING EXAM AND THE RESULTS INDICATE THAT YOU DO NOT HAVE A CONDITION THAT REQUIRES URGENT TREATMENT IN THE EMERGENCY DEPARTMENT. FURTHER EVALUATION AND TREATMENT OF YOUR CONDITION CAN WAIT UNTIL YOU ARE SEEN IN YOUR DOCTORS OFFICE WITHIN THE NEXT 1-2 DAYS. IT IS YOUR RESPONSIBILITY TO MAKE AN APPOINTMENT FOR FOLOW-UP CARE. IF YOU HAVE A PRIMARY DOCTOR --you should call your primary doctor and schedule an appointment IF YOU DO NOT HAVE A PRIMARY DOCTOR YOU CAN CALL OUR PHYSICIAN REFERRAL HOTLINE AT IF YOU CAN NOT AFFORD TO SEE A PHYSICIAN YOU CAN CHOSE FROM THE FOLLOWING [facility] [address] [facility] [address] [facility] [facility] [address] [facility] [facility] [address] [facility]. [facility] [address] [facility]. [facility]. [address] Additional Instructions: FOLLOW UP WITH YOUR PRIMARY CARE PHYSICIAN TOMORROW.Return to this facility if you are not improving as expected. OLIVIA ONEILL PA-C Apr 03, 2018 15:42
[2018-04-06] MEDS ORDERED: BENZ200C68 PO (10:29)
[2018-04-06] MEDS ORDERED: PHEN177S43 MT (10:29)
[2018-04-06] MEDS ORDERED: AZIT250T PO (10:29)
== END 2018-04-03 15:40 | disposition home or self-care (01) ==
LOC: FTE 14:29
DX: J06.9 Acute upper respiratory infection, unspecified (principal)
CPT/HCPCS: 99283

== ENCOUNTER 2018-05-27 17:40 | Emergency (ER) | payer BC ==
[~2018-05-27] VITALS: Ht 160 cm; Wt 68.8 kg
[~2018-05-27 17:40] MED LIST changes: +BENZ200C68 PO; +PHEN177S43 MT; +PROM6.2515 PO; +PSEU-79 PO
[2018-05-27 17:50] VITALS: Ht 160 cm; Wt 68.8 kg
[2018-05-27] MEDS ORDERED: KETOROLAC 15 MG INJ IV STA (20:57)
[2018-05-27] MEDS ORDERED: IBUP-1982 PO (21:28)
--- NOTE | 2018-05-27 22:40 | ERD ---
ER Documentation Chief Complaint Chief Complaint left pelvic pain x 3 months HPI 42-year-old female ambulatory to the ED complaining of several month history of crampy, nonradiating, worsening left lower quadrant pain but over the last several days developed hematuria. Denies dysuria or polyuria. In contrast to the triage note the patient denies vaginal discharge or bleeding. Denies nausea, vomiting, diarrhea or constipation. No chest pain, palpitations or shortness of breath. No skin rash. No relieving or exacerbating factors. No fevers or chills. ROS All systems reviewed and are negative except as per history of present illness. Medications Home Meds Active Scripts Ibuprofen* (Motrin*) 600 Mg Tab, 600 MG PO Q6H PRN for PAIN AND OR ELEVATED TEMP, #20 TAB Prov:COLIN HERNANDEZ MD 05/27/18 Nitrofurantoin Monohyd Macrocr* (Macrobid*) 100 Mg Capsr, 100 MG PO HS for 7 Days, CAP Prov:COLIN HERNANDEZ MD 05/27/18 Reported Medications Ibuprofen* (Ibuprofen*) Unknown Strength Capsule, 1 CAP PO NEEDED, CAP 05/27/18 Discontinued Reported Medications [Lantus,Humalog Insulin] No Conflict Check 07/22/12 Cholecalciferol (Vitamin D3) 1,000 Unit Capsule, 1000 UNIT PO DAILY 07/22/12 Gabapentin* (Gabapentin*) 300 Mg Capsule, 300 MG PO TID 07/22/12 Ferrous Sulfate* (Ferrous Sulfate*) 325 Mg Tablet, 325 MG PO TID 07/22/12 Docusate Sodium* (Colace*) 100 Mg Capsule, 100 MG PO DAILY 07/22/12 Losartan Potassium* (Losartan Potassium*) 25 Mg Tablet, 25 MG PO DAILY 07/22/12 Pravastatin Sodium* (Pravastatin Sodium*) 80 Mg Tablet, 80 MG PO DAILY 07/22/12 Furosemide (Lasix) 20 Mg Tab, 20 MG PO DAILY 07/22/12 Potassium Chloride* (K-Dur*) 20 Meq Tab.prt.sr, 20 MEQ PO DAILY 07/22/12 [Asa] No Conflict Check, 81 MG PO DAILY 07/22/12 [None] No Conflict Check 07/22/12 [None] No Conflict Check 04/01/11 Discontinued Scripts Phenol* (Chloraseptic* [place]) 177 Ml [place].pump, 2 SPRAY MT Q2H PRN for SORE THROAT, #1 BOTTLE Prov:KISHAN WEINER PA-C 04/06/18 Benzonatate* (Benzonatate*) 200 Mg Capsule, 200 MG PO TID PRN for COUGH, #15 CAP Prov:KISHAN WEINER PA-C 04/06/18 Azithromycin* (Zithromax*) 250 Mg Tablet, 250 MG PO .[place] DIRECTED, #6 TAB TAKE 500 MG (2 TABS) THE FIRST DAY THEN 250 MG (1 TAB) DAYS 2-5 Prov:KISHAN WEINER PA-C 04/06/18 Promethazine Hcl* (Promethazine Hcl* Syrup) 6.25 Mg/5 Ml Syrup, 6.25 MG PO Q6H PRN for COUGH, #100 ML Prov:OLIVIA ONEILL PA-C 04/03/18 Naproxen* (Naprosyn*) 500 Mg Tablet, 500 MG PO BID PRN for PAIN AND/OR INFLAMMATION, #30 TAB Prov:OLIVIA ONEILL PA-C 04/03/18 Pseudoephedrine Hcl* (Suphedrin*) 30 Mg Tablet, 30 MG PO Q6 PRN for CONGESTION, #30 TAB Prov:OLIVIA ONEILL PA-C 04/03/18 Acetaminophen* (Tylophen*) 500 Mg Capsule, 1 CAP PO Q6H PRN for PAIN AND OR ELEVATED TEMP, #20 CAP Prov:JOANNA YOUSSEF PA-C 07/19/17 Albuterol Sulfate* (Proair HFA*) 8.5 Gm Hfa.aer.ad, 2 PUFF INH Q4H PRN for WHEEZING AND SOB, #1 INHALER Prov:TOD ROWAN MAIL ORDER SORTER 05/29/17 Acetaminophen* (Tylophen*) 500 Mg Capsule, 1 CAP PO Q6H PRN for PAIN AND OR ELEVATED TEMP, #20 CAP Prov:TOD ROWAN MAIL ORDER SORTER 05/29/17 Ibuprofen* (Motrin*) 600 Mg Tab, 600 MG PO Q6H PRN for PAIN AND OR ELEVATED TEMP , #30 TAB Prov:TOD ROWAN MAIL ORDER SORTER 3/16/18 Cetirizine Hcl* (Zyrtec*) 10 Mg Capsule, 10 MG PO DAILY, #30 TAB.CHEW Prov:TOD ROWAN NP 05/29/17 Flujzzpdsmd-H-Upcbchqbvn Hb* (Guaifenesin* DM Syrup) 120 Ml Syrup, 10 ML PO Q4H PRN for COUGH, #120 ML Prov:TOD ROWAN NP 05/29/17 Azithromycin* (Zithromax*) 250 Mg Tablet, 250 MG PO .ZPACK DIRECTED, #6 TAB TAKE 500 MG (2 TABS) THE FIRST DAY THEN 250 MG (1 TAB) DAYS 2-5 Prov:TOD ROWAN NP 05/29/17 Azithromycin* (Zithromax*) 250 Mg Tablet, 250 MG PO .ZPACK DIRECTED, #6 TAB TAKE 500 MG (2 TABS) THE FIRST DAY THEN 250 MG (1 TAB) DAYS 2-5 Prov:JESUS CASTRO PA-C 02/25/17 Naproxen* (Naprosyn*) 500 Mg Tablet, 500 MG PO BID PRN for PAIN AND/OR INFLAMMATION, #30 TAB Prov:JESUS CASTRO PA-C 02/25/17 Fluticasone Propionate (Flonase Allergy Relief) 9.9 Ml [place].susp, 2 SPRAY NASAL DAILY, #1 BOTTLE TO EACH NOSTRIL Prov:JESUS CASTRO PA-C 02/25/17 Cetirizine Hcl* (Zyrtec*) 10 Mg Capsule, 10 MG PO DAILY, #14 TAB.CHEW Prov:JESUS CASTRO PA-C 02/25/17 Guaifenesin-Dextromethorphan* (Robitussin* DM) 100MG/10MG/5ML Syrup, 10 ML PO Q6H PRN for COUGH for 5 Days, ML Prov:JESUS CASTRO PA-C 02/25/17 Acetamin/Butalbital/Caffeine* (Fioricet*) [id number] Tab, 1 TAB PO Q6H PRN for SEVERE PAIN LEVEL 7-10, #30 TAB Prov:TOD ROWAN NP 06/18/16 Cetirizine Hcl* (Zyrtec*) 10 Mg Capsule, 10 MG PO DAILY, #30 TAB.CHEW Prov:TOD ROWAN NP 06/18/16 Fluticasone Propionate (Flonase Allergy Relief) 9.9 Ml [place].susp, 1 SPRAY NASAL BID, #1 BOTTLE TO EACH NOSTRIL Prov:TOD ROWAN NP 06/18/16 Diclofenac Sodium* (Voltaren* Gel) 1% -100 Gm Gel, 2 GM TOP QID, #1 TUB Prov:RAMESH VILLEGAS PA-C 05/04/16 Naproxen* (Naprosyn*) 500 Mg Tablet, 500 MG PO BID PRN for PAIN AND/OR INFLAMMATION, #30 TAB Prov:RAMESH VILLEGAS PA-C 05/04/16 Dextromethorphan Hb-Promethazine Hcl (Promethazine DM Syrup) 473 Ml Syrup, 10 ML PO Q6H PRN for COUGH, #4 OZ Prov:GRACIE FINLEY 01/11/16 Azithromycin* (Zithromax*) 250 Mg Tablet, 250 MG PO .ZPACK DIRECTED, #6 TAB TAKE 500 MG (2 TABS) THE FIRST DAY THEN 250 MG (1 TAB) DAYS 2-5 Prov:GRACIE FINLEY 01/11/16 Loratadine* (Claritin*) 10 Mg Capsule, 10 MG PO DAILY, #30 CAP Prov:AMAN MATTHEWS PA-C 10/14/15 Ranitidine Hcl* (Zantac*) 150 Mg Tablet, 150 MG PO DAILY PRN for EPIGASTRIC PAIN, #30 TAB Prov:AMAN MATTHEWS PA-C 10/14/15 Promethazine w/Codeine* (Phenergan w/Codeine* Syrup) 5 Ml Syrup, 5 ML PO Q4H PRN for COUGH, #4 OZ Prov:STANTON GALAN DO 01/14/15 Omeprazole* (Omeprazole*) 20 Mg Capsule.dr, 20 MG PO DAILY for 7 Days, CAP Prov:LORI MCNAMARA NP 09/07/14 Famotidine* (Pepcid*) 20 Mg Tablet, 20 MG PO BID for 4 Days, TAB Prov:LORI MCNAMARA NP 09/07/14 Allergies Allergies: Coded Allergies: No Known Allergy (Unverified , 05/27/18) PMhx/Soc Reviewed in chart. As per HPI. Medical and Surgical Hx: pt denies Medical Hx History of Surgery: Yes (caesarian section) Anesthesia Reaction: No Hx Neurological Disorder: No Hx Respiratory Disorders: No Hx Cardiac Disorders: No Hx Psychiatric Problems: No Hx Miscellaneous Medical Probl: Yes (Uterine fibroid) Hx Alcohol Use: No Hx Substance Use: No Hx Tobacco Use: No Smoking Status: Never smoker Physical Exam Vitals Vital Signs Date Temp Pulse Resp B/P (MAP) Pulse Ox O2 O2 Flow FiO2 Time Delivery Rate 05/27/18 67 17 126/82 98 Room Air 23:10 (97) 05/27/18 68 20 147/88 99 Room Air 20:58 (107) 05/27/18 97.6 80 18 148/74 98 17:50 (98) Physical Exam Const: Mild distress due to pain. Anxious. Head: Atraumatic Eyes: Normal Conjunctiva ENT: Normal External Ears, Nose and Mouth. Neck: Full range of motion. No meningismus. Resp: Clear to auscultation bilaterally Cardio: Regular rate and rhythm, no murmurs Abd: Soft, mild, left lower quadrant tenderness but no rebound or guarding. Non distended. Normal bowel sounds. Pelvic exam deferred as per patient. Skin: No petechiae or rashes Back: No midline or flank tenderness Ext: No cyanosis, or edema Neur: Awake and alert Psych: Normal Mood and Affect Result Diagram: 05/27/18210105/27/182101 Results 24 hrs Laboratory Tests Test 05/27/18 21:02 05/27/18 21:10 White Blood Count 5.4 10^3/ul Red Blood Count 4.15 10^6/ul Hemoglobin 12.8 g/dl Hematocrit 37.6 % Mean Corpuscular Volume 90.6 fl Mean Corpuscular Hemoglobin 30.8 pg Mean Corpuscular Hemoglobin Concent 34.0 g/dl Red Cell Distribution Width 11.9 % Platelet Count 240 10^3/UL Mean Platelet Volume 8.9 fl Immature Granulocytes % 0.200 % Neutrophils % 50.6 % Lymphocytes % 39.1 % Monocytes % 7.5 % Eosinophils % 1.9 % Basophils % 0.7 % Nucleated Red Blood Cells % 0.0 /100WBC Immature Granulocytes # 0.010 10^3/ul Neutrophils # 2.7 10^3/ul Lymphocytes # 2.1 10^3/ul Monocytes # 0.4 10^3/ul Eosinophils # 0.1 10^3/ul Basophils # 0.0 10^3/ul Nucleated Red Blood Cells # 0.0 10^3/ul Urine Color YELLOW Urine Clarity SLIGHTLY CLOUDY Urine pH 5.0 Urine Specific [place] 1.015 Urine Ketones TRACE mg/dL Urine Nitrite NEGATIVE mg/dL Urine Bilirubin NEGATIVE mg/dL Urine Urobilinogen NEGATIVE mg/dL Urine Leukocyte Esterase NEGATIVE Tyrese/ul Urine Microscopic RBC 10 /HPF Urine Microscopic WBC 2 /HPF Urine Squamous Epithelial Cells FEW /HPF Urine Mucus FEW /HPF Urine Hemoglobin 3+ mg/dL Urine Glucose NEGATIVE mg/dL Urine Total Protein NEGATIVE mg/dl Sodium Level 140 mmol/L Potassium Level 3.8 mmol/L Chloride Level 102 mmol/L Carbon Dioxide Level 27 mmol/L Anion Gap 11 Blood Urea Nitrogen 11 mg/dl Creatinine 0.61 mg/dl Est Glomerular Filtrat Rate mL/min > 60 mL/min Glucose Level 91 mg/dl Calcium Level 10.0 mg/dl Total Bilirubin 0.2 mg/dl Direct Bilirubin 0.00 mg/dl Indirect Bilirubin 0.2 mg/dl Aspartate Amino Transf (AST/SGOT) 28 IU/L Alanine Aminotransferase (ALT/SGPT) 20 IU/L Alkaline Phosphatase 60 IU/L Total Protein 8.2 g/dl Albumin 4.8 g/dl Globulin 3.40 g/dl Albumin/Globulin Ratio 1.41 POC Beta HCG, Qualitative NEGATIVE Current Medications Medications Dose Sig/Yolanda Start Time Status Last (Trade) Ordered Route PRN Stop Time Admin Dose Reason Admin Ketorolac 15 mg ONCE STAT 05/27/18 DC 05/27/18 Tromethamine IV 20:57 21:13 (Toradol) 05/27/18 21:00 Procedures/MDM DOCUMENTS REVIEWED: ED nurse, prior ED, prior records IMAGING: PROCEDURE: CT abdomen and pelvis without contrast. CLINICAL INDICATION: Left lower quadrant pain. Hematuria. TECHNIQUE: CT scan of the abdomen and pelvis without contrast was performed and is reconstructed at 2.5 mm contiguous axial intervals from the dome of the diaphragm to the inferior pubic rami.. The patient was scanned without intravenous contrast. Sagittal and coronal reformatted images were obtained from the axial source images. The calculated radiation dose measures 630 mGy centimeters. The CTDI measures 11.2 mGy. Individualized dose optimization technique was used for the performance of this exam. This included 1. Automated exposure control. 2. Adjustment of the mA and / or kV according to the patient's size. 3. Use of iterative reconstructed technique. COMPARISON: None. FINDINGS: The lung bases are clear of any infiltrate or nodule. No effusion is seen. The liver is of normal size, contour and attenuation with no mass or ductal dilatation. No gallstones are visualized. No splenic, adrenal or pancreatic abnormalities present. Kidneys are of normal size and contour. No hydronephrosis, calculus or masses seen. Ureters are of normal course and caliber with no stone. No bladder mass or stone is present. Uterus appears normal. No adnexal mass is seen. There is no aneurysm. No adenopathy is present. No bowel mass or obstruction is present. The appendix is normal. No phlegmon, ascites or pneumoperitoneum is visualized. The osseous structures are intact. IMPRESSION: No evidence of urolithiasis, obstructive uropathy, diverticulitis or appendicitis. .Charles Bermeo MD, MD Date Time Electronically viewed and signed by .Charles Bermeo MD, on 05/27/2018 22:27 .A/ MEDICAL DECISION MAKIN-year-old female ambulatory to the ED complaining of several month history of crampy, nonradiating, worsening left lower quadrant pain but over the last several days developed hematuria. CBC unremarkable for leukocytosis, anemia or thrombocytopenia. Chemistry reveals no evidence of r enal insufficiency or electrolyte abnormalities. Urinalysis reveals microscopic hematuria but no nitrate, leukocyte esterase or significant bacteria. CT of the abdomen pelvis without contrast performed to evaluate for an acute intra- abdominal process including but not limited to obstructive uropathy, diverticulitis, appendicitis, bowel obstruction, mass and neoplasm is unremarkable. Ovarian pathology including but not limited to torsion is considered however considering the longevity of the patient's pain is unlikely and ultrasound is deferred. Hematuria of uncertain etiology possibly secondary to cystitis and antibiotics will be initiated pending cultures. An occult neoplasm is not ruled out. Understands that the etiology of her symptoms is not established and urgent outpatient follow-up is mandatory. Stable for discharge with precautionary instructions and outpatient follow-up as counseled. Counseled patient regarding diagnostic workup, diagnosis and need for followup. Understands to return to ED if symptoms recur, worsen or any other concerns. Departure Diagnosis: Primary Impression: Acute abdominal pain in left lower quadrant Additional Impression: Hematuria Hematuria type: unspecified type Qualified Codes: R31.9 - Hematuria, unspecified Condition: Stable COLIN HERNANDEZ MD May 27, 2018 22:40
[2018-05-27 23:10] VITALS: BP 126/82; PULSE 67; RESP 17
[2018-05-27] MEDS ORDERED: NITR-58 PO (23:18)
[2018-05-27] MEDS ORDERED: IBUP-1542 PO (23:18)
== END 2018-05-27 23:40 | disposition home or self-care (01) ==
LOC: E/R 17:40
DX: R10.32 Left lower quadrant pain (principal); R10.2 Pelvic and perineal pain; R31.9 Hematuria, unspecified
CPT/HCPCS: 74176; 80053; 81001; 81025; 85025; 87086; 96374; 99285; J1885

== ENCOUNTER 2018-12-03 19:01 | Emergency (ER) | payer BC ==
[~2018-12-03] VITALS: Ht 157.5 cm; Wt 70.1 kg
[~2018-12-03 19:01] MED LIST changes: -ALBU8.5H8 INH; -ASA PO; -AZIT250T PO; -BENZ200C68 PO; +BISM262O23 PO; -CETI10CA PO; -CHOL10009 PO; -D-ME473S18 PO; -DICL100G37 TOP; -DOCU-144 PO; -FAMO-96 PO; -FERR-55 PO; -FIORICET PO; -FLUT9.9S NASAL; -GABA300C16 PO; -GUAI120S26 PO; -GUAI5SYR2 PO; +IBUP-1541 PO; +IBUP-1982 PO; -INSULIN GLARGINE; -INSULIN LISPRO; -LAS20 PO; -LORA10CA PO; -LOSA25TA12 PO; -NAPR-985 PO; +NITR-58 PO; -OMEP20CA16 PO; +ONDA8TAB14 PO; -PHEN177S43 MT; -POTA20TA15 PO; -PRAV80TA27 PO; -PROM6.25 PO; -PROM6.2515 PO; -PSEU-79 PO; -RANI150T35 PO; +SIME125T7 PO
[2018-12-03 19:43] VITALS: BP 133/61; PULSE 69; RESP 18; Ht 157.5 cm; Wt 70.1 kg
[2018-12-03] MEDS ORDERED: KETOROLAC 30 MG INJ IM STA (22:10)
== END 2018-12-04 00:20 | disposition home or self-care (01) ==
LOC: FTE 19:01
DX: K42.9 Umbilical hernia without obstruction or gangrene (principal)
CPT/HCPCS: 74176; 81001; 81025; 96372; 99285; J1885